=== PATIENT | female | born 1970 | race American Indian/Alaskan Native ===

== ENCOUNTER 2020-09-01 05:20 | Observation (INO) | payer OTHER ==
[2020-09-01] MEDS ORDERED: ASPIRIN 325 MG TAB PO ONE ×2 (06:08→09:05)
[2020-09-01 06:37] LABS: Basophils # (Auto) 0.1 K/mm3 (0.0-0.1); Eosinophils % (Auto) 0.3 % (0.0-4.3); Hematocrit 34.3 % (30.3-42.9); Hemoglobin 11.4 gm/dl (10.1-14.3); Lymphocytes # (Auto) 1.6 K/mm3 (1.2-5.4); Lymphocytes % (Auto) 18.1 % (13.4-35.0); Mean Corpuscular HGB Conc 33 % (30-34); Mean Corpuscular Volume 98 fl (79-97); Monocytes # (Auto) 0.5 K/mm3 (0.0-0.8); Monocytes % (Auto) 5.7 % (0.0-7.3); Platelet Count 216 K/mm3 (140-440); Red Blood Count 3.48 M/mm3 (3.65-5.03); Red Cell Distribution Width 16.8 % (13.2-15.2)
--- NOTE | 2020-09-01 06:40 | XRay Report ---
XR chest 1V ap INDICATION / CLINICAL INFORMATION: Chest Pain COMPARISON: None available. FINDINGS: SUPPORT DEVICES: Transvenous AICD HEART / MEDIASTINUM: No significant abnormality. LUNGS / PLEURA: Peribronchial and interlobular septal thickening. Right lower lung zone patchy airspa ce opacities. Costophrenic sulci are sharp. No pneumothorax. ADDITIONAL FINDINGS: No significant additional findings. IMPRESSION: 1. Right lower lung zone airspace disease concerning for pneumonia. 2. Interstitial edema is present. Signer Name: Damian Corona MD Signed: 09/01/2020 6:36 AM Workstation Name: [id number]
[2020-09-01 06:57] LABS: BUN/Creatinine Ratio 16; Blood Urea Nitrogen 11 mg/dL (7-17); Calcium 9.3 mg/dL (8.4-10.2); Hemolysis Index 40
[2020-09-01] MEDS ORDERED: fentaNYL 100 MCG/2 ML INJ IV ONE (09:05)
[2020-09-01] MEDS ORDERED: ONDANSETRON 4 MG/2 ML INJ IV ONE (09:05)
--- NOTE | 2020-09-01 09:14 | Emergency Department Report ---
HPI - General Chief Complaint: Dyspnea/Respdistress PUI?: Yes Time Seen by Provider: 09/01/20 08:41 - HPI HPI: Room 6 The patient is a 50-year-old female present with a chief complaint of shortness of breath and edema. The patient states for the past 2 days she has had bilateral pedal edema and intermittent shortness of breath. Patient states last night the shortness of breath worsened and she developed pain in her chest back and lower abdomen. Patient complained of feeling dizzy. Patient states for the past 2 days she has had a cough that is been nonproductive. Patient denies history of fever or known contact with Covid positive patients. Patient describes her chest pain as sharp and intermittent in nature. The patient states she has been compliant with her Lasix. The patient states her last stress test occurred approximately 8 months ago and was normal but she has never had a cardiac catheterization ED Past Medical Hx - Past Medical History Previous Medical History?: Yes Hx Hypertension: Yes Hx Congestive Heart Failure: Yes Hx Pulmonary Embolism: Yes Hx COPD: Yes - Surgical History Past Surgical History?: Yes Hx Internal Defibrillator: Yes Additional Surgical History: Hysterectomy - Family History Family history: no significant - Social History Smoking Status: Current Every Day Smoker (1/3 pack/day) Substance Use Type: None (Denies illicit drug use), Alcohol (Occasional) - Medications Home Medications: Home Medications Medication Instructions Recorded Confirmed Last Taken Type Aspirin [Adult Aspirin] 81 mg PO DAILY 09/01/20 09/01/20 Unknown History AtorvaSTATin [Lipitor] 10 mg PO QHS 09/01/20 09/01/20 Unknown History Furosemide [Lasix] 40 mg PO DAILY 09/01/20 09/01/20 Unknown History Metoprolol [Lopressor] 25 mg PO DAILY 09/01/20 09/01/20 Unknown History Potassium Chloride [K-Dur] 10 meq PO DAILY 09/01/20 09/01/20 Unknown History Verapamil HCl [Verapamil] 40 mg PO DAILY 09/01/20 09/01/20 Unknown History ED Review of Systems ROS: Stated complaint: SOB;BODY PAIN Other details as noted in HPI Constitutional: no symptoms reported Eyes: denies: eye pain ENT: denies: throat pain Respiratory: cough, shortness of breath Cardiovascular: chest pain Endocrine: no symptoms reported Gastrointestinal: abdominal pain Genitourinary: denies: dysuria Musculoskeletal: back pain Neurological: denies: headache Physical Exam - Physical Exam Vital Signs: Vital Signs 09/01/20 09/01/20 05:43 05:44 Temperature 98.6 F Pulse Rate 79 Respiratory 150 H 18 Rate Blood Pressure 99/57 O2 Sat by Pulse 100 Oximetry Physical Exam: GENERAL: The patient is well-developed well-nourished []. [] HEENT: Normocephalic. Atraumatic. Extraocular motions are intact. Patient has moist mucous membranes. NECK: Supple. Trachea midline CHEST/LUNGS: Clear to auscultation. There is no respiratory distress noted. HEART/CARDIOVASCULAR: Regular. There is no tachycardia. There is no gallop rub or murmur. ABDOMEN: Abdomen is soft, nontender. Patient has normal bowel sounds. There is no abdominal distention. SKIN: There is no rash. There is bilateral pedal edema left greater than right (trace pitting on right foot, 1+ pitting on the left foot). There is no diaphoresis. NEURO: The patient is awake, alert, and oriented. The patient is cooperative. The patient has normal speech MUSCULOSKELETAL: There is no evidence of acute injury. ED Course Vital Signs 09/01/20 09/01/20 05:43 05:44 Temperature 98.6 F Pulse Rate 79 Respiratory 150 H 18 Rate Blood Pressure 99/57 O2 Sat by Pulse 100 Oximetry - Consultations Consultation #1: 09/01/20 09:16 Cardiology paged 09/01/20 09:32 Case discussed with an EKG sent to Dr. Xiao. States intervention will Dr. Solis will evaluate the patient. Patient should be kept n.p.o. ED Medical Decision Making - Lab Data Result diagrams: 09/01/20 06:20 09/01/20 06:20 Laboratory Tests 09/01/20 09/01/20 09/01/20 06:20 06:20 09:17 WBC 9.1 RBC 3.48 L Hgb 11.4 Hct 34.3 MCV 98 H MCH 33 H MCHC 33 RDW 16.8 H Plt Count 216 Lymph % (Auto) 18.1 [place] % (Auto) 5.7 Eos % (Auto) 0.3 Baso % (Auto) 1.0 Lymph # (Auto) 1.6 [place] # (Auto) 0.5 Eos # (Auto) 0.0 Baso # (Auto) 0.1 Seg Neutrophils % 74.9 H Seg Neutrophils # 6.8 Sodium 139 Potassium 4.1 Chloride 98.7 Carbon Dioxide 30 Anion Gap 14 BUN 11 Creatinine 0.7 Estimated GFR > 60 BUN/Creatinine Ratio 16 Glucose 109 H Calcium 9.3 Troponin T < 0.010 < 0.010 - EKG Data -: EKG Interpreted by Me EKG shows normal: sinus rhythm Rate: normal - EKG Data When compared to previous EKG there are: previous EKG unavailable Interpretation: nonspecific ST-T wave violet - Radiology Data Radiology results: report reviewed (Chest x-ray), image reviewed (Chest x-ray) interpreted by me: Chest x-ray-right lower lobe haziness. No pneumothorax. XR chest 1V ap INDICATION / CLINICAL INFORMATION: Chest Pain COMPARISON: None available. FINDINGS: SUPPORT DEVICES: Transvenous AICD HEART / MEDIASTINUM: No significant abnormality. LUNGS / PLEURA: Peribronchial and interlobular septal thickening. Right lower lung zone patchy airspace opacities. Costophrenic sulci are sharp. No pneumothorax. ADDITIONAL FINDINGS: No significant additional findings. IMPRESSION: 1. Right lower lung zone airspace disease concerning for pneumonia. 2. Interstitial edema is present. Signer Name: Damian Corona MD Signed: 09/01/2020 5:36 AM Workstation Name: [id number] ] - Differential Diagnosis Pneumonia, CHF exacerbation, ACS, pericarditis, GERD, Covid Critical care attestation.: If time is entered above; I have spent that time in minutes in the direct care of this critically ill patient, excluding procedure time. ED Disposition Clinical Impression: Chest pain, CHF exacerbation, Pneumonia Disposition: OP ADMIT IP TO THIS HOSP Is pt being admited?: Yes Does the pt Need Aspirin: Yes Condition: Stable Instructions: Nonspecific Chest Pain, Adult, Bacterial Pneumonia (ED) Referrals: PRIMARY CARE, [Primary Care Provider] - 3-5 Days Time of Disposition: 11:14 (Hospitalist paged) Heart Score - HEART Score History: Moderately suspicious EKG: Significant ST-depression Age: 45-65 Risk factors: 1-2 risk factors Troponin: < normal limit HEART Score: 5
[2020-09-01] MEDS ORDERED: AZITHROMYCIN/NS 500 MG/250 ML 500 MG/250 ML BAG IV ONE (09:44)
[2020-09-01] MEDS ORDERED: cefTRIAXone/NS 1 GM/50 ML 1 GM/50 ML BAG IV ONE (09:44)
--- NOTE | 2020-09-01 11:59 | Consultation ---
History of Present Illness Consult date: 09/01/20 Requesting physician: YAMILETH MARTIN Consult reason: chest pain History of present illness: Patient is a 50-year-old with a history of nonischemic cardiomyopathy, status post AICD tobacco and alcohol abuse who presented to the hospital with complaints of shortness of breath edema and vague chest pain. Patient reports h e sees Dr. Christy on a regular basis. Lately she has been having worsening shortness of breath with mild exertion. Also noted to have gradually progressing edema. She reports that she has been compliant with the diet and medications. Past History Past Medical History: heart failure, other (Cardiomyopathy. Status post AICD) Past Surgical History: Other (Status post AICD) Social history: smoking, alcohol abuse Family history: no significant family history Medications and Allergies Allergies Allergy/AdvReac Type Severity Reaction Status Date / Time No Known Allergies Allergy Verified 09/01/20 08:44 Home Medications Medication Instructions Recorded Confirmed Last Taken Type Aspirin [Adult Aspirin] 81 mg PO DAILY 09/01/20 09/01/20 Unknown History AtorvaSTATin [Lipitor] 10 mg PO QHS 09/01/20 09/01/20 Unknown History Furosemide [Lasix] 40 mg PO DAILY 09/01/20 09/01/20 Unknown History Metoprolol [Lopressor] 25 mg PO DAILY 09/01/20 09/01/20 Unknown History Potassium Chloride [K-Dur] 10 meq PO DAILY 09/01/20 09/01/20 Unknown History Verapamil HCl [Verapamil] 40 mg PO DAILY 09/01/20 09/01/20 Unknown History Review of Systems All systems: negative (As mentioned in the H&P) Physical Examination Vital Signs Temp Pulse Resp BP Pulse Ox 98.6 F 79 18 99/57 100 09/01/20 05:43 09/01/20 05:43 09/01/20 05:43 09/01/20 05:43 09/01/20 05:43 General appearance: no acute distress HEENT: Positive: Normocephaly Neck: Positive: trachea midline Cardiac: Positive: Reg Rate and Rhythm Lungs: Positive: Other (Bilateral basal crepitus) Neuro: Positive: Grossly Intact Abdomen: Positive: Unremarkable Female genitourinary: deferred Extremities: Present: +1 Edema Results 09/01/20 06:20 09/01/20 06:20 CBC 09/01/20 Range/Units 06:20 WBC 9.1 (4.5-11.0) K/mm3 RBC 3.48 L (3.65-5.03) M/mm3 Hgb 11.4 (10.1-14.3) gm/dl Hct 34.3 (30.3-42.9) % Plt Count 216 (140-440) K/mm3 Lymph # (Auto) 1.6 (1.2-5.4) K/mm3 [place] # (Auto) 0.5 (0.0-0.8) K/mm3 Eos # (Auto) 0.0 (0.0-0.4) K/mm3 Baso # (Auto) 0.1 (0.0-0.1) K/mm3 Comprehensive Metabolic Panel 09/01/20 Range/Units 06:20 Sodium 139 (137-145) mmol/L Potassium 4.1 (3.6-5.0) mmol/L Chloride 98.7 (98-107) mmol/L Carbon Dioxide 30 (22-30) mmol/L BUN 11 (7-17) mg/dL Creatinine 0.7 (0.6-1.2) mg/dL Glucose 109 H (65-100) mg/dL Calcium 9.3 (8.4-10.2) mg/dL EKG interpretations - EKG Sinus rhythms and dysrhythmias: sinus rhythm (Anteroseptal Q waves LVH) Assessment and Plan Impression: 1. Atypical chest pain 2. Shortness of breath, exam and clinical history consistent with acute on chronic congestive heart failure 3. Acute on chronic systolic congestive heart failure with class III symptoms 4. History of nonischemic cardiomyopathy stage B class II-III symptoms 5. Abnormal EKG anteroseptal Q waves. Plan: Resume home medications Start patient on IV diuretics Monitor renal function If patient has not had echo if there is need an outpatient within the last 6 months we will repeat an echo Alcohol and smoking counseling May consider stress test prior to DC
[2020-09-01] MEDS ORDERED: FUROSEMIDE 20 MG/2 ML INJ IV ONE (12:00)
--- NOTE | 2020-09-01 12:37 | History and Physical Report ---
History of Present Illness Date of examination: 09/01/20 Date of admission: 09/01/20 11:19 Chief complaint: Worsening shortness of breath, worsening leg edema for the last 2 days History of present illness: 50-year-old -[place] female patient with significant past medical history of systolic congestive heart failure, nonischemic cardiomyopathy, s/pAICD follows with [facility], claims compliance with her medications and diet presents to the emergency room with worsening shortness of breath, nonproductive cough and worsening leg edema of 2 days duration with intermittent chest discomfort and chest pain. Patient also complains of some dizziness and generalized weakness. No history of fever no contacts with COVID- 19 patients, patient reports that she had a negative stress test about 8 to 10 months ago.Initial evaluation in the emergency room is consistent with, acute exacerbation of congestive heart failure Chest x-ray interstitial lung edema, right lower lobe airspace infiltrate, possible pneumonia Patient reports that her chest pain is intermittent lasts about 3 to 4 minutes not associated with nausea vomiting or diaphoresis mild intermittent dizziness At the time of my evaluation chest pain resolved mild shortness of breath Denies nausea vomiting abdominal pain 2 sets of cardiac enzymes negative Past History Past Medical History: heart failure, other (Cardiomyopathy. Status post AICD) Past Surgical History: Other (Status post AICD) Social history: smoking, alcohol abuse Family history: no significant family history Past History Past Medical History: heart failure, hypertension, hyperlipidemia, other (Cardiomyopathy. Status post AICD) Past Surgical History: Other (Status post AICD) Social history: smoking, alcohol abuse Family history: no significant family history Medications and Allergies Allergies Allergy/AdvReac Type Severity Reaction Status Date / Time No Known Allergies Allergy Verified 09/01/20 08:44 Home Medications Medication Instructions Recorded Confirmed Last Taken Type Aspirin [Adult Aspirin] 81 mg PO DAILY 09/01/20 09/01/20 Unknown History AtorvaSTATin [Lipitor] 10 mg PO QHS 09/01/20 09/01/20 Unknown History Furosemide [Lasix] 40 mg PO DAILY 09/01/20 09/01/20 Unknown History Metoprolol [Lopressor] 25 mg PO DAILY 09/01/20 09/01/20 Unknown History Potassium Chloride [K-Dur] 10 meq PO DAILY 09/01/20 09/01/20 Unknown History Verapamil HCl [Verapamil] 40 mg PO DAILY 09/01/20 09/01/20 Unknown History Active Meds: Active Medications Aspirin (Aspirin Ec 81 Mg Tab) 81 mg PO DAILY [facility] Atorvastatin Calcium (Atorvastatin 10 Mg Tab) 10 mg PO QHS [facility] Metoprolol Tartrate (Metoprolol Tartrate 25 Mg Tab) 25 mg PO DAILY [facility] Miscellaneous Medication (Verapamil Hcl [Verapamil]) 40 mg PO DAILY [facility] Review of Systems Constitutional: fatigue, weakness, no weight loss, no weight gain Ears, nose, mouth and throat: no nasal congestion, no nasal discharge Cardiovascular: chest pain, edema, lightheadedness, shortness of breath, dyspnea on exertion, leg edema, decreased exercise tolerance, no paroxysmal nocturnal dyspnea Respiratory: cough, shortness of breath, dyspnea on exertion Gastrointestinal: no abdominal pain, no nausea, no vomiting Genitourinary Female: no flank pain, no dysuria Musculoskeletal: no myalgias, no arthritis Integumentary: no rash, no lesions Neurological: no seizures, no syncope Psychiatric: no anxiety, no depression Endocrine: no cold intolerance, no heat intolerance Hematologic/Lymphatic: no easy bruising, no easy bleeding Allergic/Immunologic: no urticaria, no allergic rhinitis Exam - Constitutional Vitals: Temp Pulse Resp BP Pulse Ox 98.6 F 78 17 116/73 100 09/01/20 05:43 09/01/20 10:28 09/01/20 10:28 09/01/20 10:28 09/01/20 10:28 General appearance: Present: mild distress, well-nourished - EENT Eyes: Present: PERRL, EOM intact - Neck Neck: Present: supple, normal ROM - Respiratory Respiratory effort: normal Respiratory: bilateral: diminished, rales, negative: rhonchi, wheezing - Cardiovascular Rhythm: regular Heart Sounds: Present: S1 & S2 - Extremities Extremities: no ischemia Extremity abnormal: edema - Abdominal General gastrointestinal: Present: soft, non-tender, non-distended, normal bowel sounds - Integumentary Integumentary: Present: clear, warm - Musculoskeletal Musculoskeletal: strength equal bilaterally, generalized weakness - Psychiatric Psychiatric: appropriate mood/affect, cooperative - Neurologic Neurologic: CNII-XII intact, moves all extremities HEART Score - HEART Score EKG: Significant ST-depression Age: 45-65 Risk factors: 1-2 risk factors Troponin: Troponin T < 0.010 ng/mL (0.00-0.029) 09/01/20 09:17 Troponin: < normal limit Results - Labs CBC & Chem 7: 09/01/20 06:20 09/01/20 06:20 Labs: Abnormal lab results 09/01/20 09/01/20 Range/Units 06:20 06:20 RBC 3.48 L (3.65-5.03) M/mm3 MCV 98 H (79-97) fl MCH 33 H (28-32) pg RDW 16.8 H (13.2-15.2) % Seg Neutrophils % 74.9 H (40.0-70.0) % Glucose 109 H (65-100) mg/dL Assessment and Plan --Acute on chronic systolic congestive heart failure; Will managed with antifailure medications Resume IV diuretics, beta-blockers, MARTIN inhibitors, input output Low-sodium diet, water restriction Echocardiogram if not done in the last 6 months Cardiology evaluation noted --Atypical chest pain; probably secondary to CHF exacerbation Serial cardiac enzymes, aspirin and beta-blockers and statin Morphine if needed --Dyslipidemia; continue statin Low-cholesterol diet --DVT prophylaxis; Lovenox --Ongoing tobacco use; Smoking cessation counseling, nicotine patch as needed --History of alcohol use; Strongly advised to quit alcohol intake Closely monitor for any alcohol withdrawal symptoms [facility] protocol as needed Thiamine, folic acid We will closely monitor patient and adjust management as needed Neurology evaluation and recommendations noted and appreciated Plan of care reviewed with the patient and her nurse
[2020-09-01] MEDS ORDERED: VERAPAMIL HCL 40 MG PO SCH (12:45)
[2020-09-01] MEDS: ASPIRIN EC 81 MG TAB PO SCH (13:21)
[2020-09-01] MEDS: METOPROLOL TARTRATE 25 MG TAB PO SCH (13:33)
[2020-09-01] MEDS: MORPHINE 2 MG/1 ML INJ IV PRN ×2 (14:44→20:56)
[2020-09-01] MEDS: VERAPAMIL 80 MG TAB PO SCH (15:50)
[2020-09-01] MEDS ORDERED: oxyCODONE /ACETAMINOPHEN 5-325MG TAB PO PRN (18:05)
[2020-09-01] MEDS: oxyCODONE /ACETAMINOPHEN 5-325MG TAB PO PRN (23:43)
[2020-09-02] MEDS: MORPHINE 2 MG/1 ML INJ IV PRN ×4 (02:40→22:10)
[2020-09-02] MEDS ORDERED: guaiFENesin DM 200/20 MG ORAL LIQD 10 ML PO PRN (03:22)
[2020-09-02 05:42] LABS: Blood Urea Nitrogen 12 mg/dL (7-17); Calcium 8.6 mg/dL (8.4-10.2); Hemolysis Index 9
[2020-09-02 05:47] LABS: BUN/Creatinine Ratio 20
[2020-09-02] MEDS: oxyCODONE /ACETAMINOPHEN 5-325MG TAB PO PRN ×2 (07:04→20:46)
[2020-09-02] MEDS: ASPIRIN EC 81 MG TAB PO SCH (09:41)
[2020-09-02] MEDS: METOPROLOL TARTRATE 25 MG TAB PO SCH (09:42)
[2020-09-02] MEDS ORDERED: FUROSEMIDE 40 MG/4 ML INJ IV SCH (10:00)
--- NOTE | 2020-09-02 11:55 | Progress Note ---
Assessment and Plan - Patient Problems (1) Acute on chronic systolic heart failure Current Visit: Yes Status: Acute Plan to address problem: History of dilated nonischemic cardiomyopathy, with in situ ICD implant. Presents with symptoms and x-ray evidence of acute on chronic heart failure exacerbation. We will optimize heart failure therapy with diuretics, afterload therapy, spironolactone and add beta-blockers when heart failure is well compensated. I will discontinue the patient's verapamil and instead optimize beta-jason therapy with carvedilol. Subjective Date of service: 09/02/20 Interval history: The patient looks and feels better, but still has some mild shortness of breath on exertion. There is no chest pain and no edema. She has a known, nonischemic cardiomyopathy, status post ICD implant 1 month ago. She presents with shortness of breath and chest x-ray consistent with acute pulmonary edema. The etiology of the heart failure exacerbation is uncertain, patient states that she is compliant with medications and a strict low-salt diet. Objective Vital Signs Temp Pulse Resp BP BP Pulse Ox 09/02/20 09:00 65 09/02/20 08:23 32.1 F L 73 20 173/103 100 09/02/20 00:02 98.2 F 76 16 131/84 100 09/01/20 23:43 20 09/01/20 22:00 82 09/01/20 21:26 20 09/01/20 20:56 20 09/01/20 20:10 98.1 F 66 16 148/90 97 09/01/20 13:33 80 141/96 09/01/20 12:40 81 16 137/89 100 - Physical Examination General: No Apparent Distress HEENT: Positive: Normocephaly Neck: Positive: trachea midline Cardiac: Positive: Reg Rate and Rhythm Lungs: Positive: Decreased Breath Sounds Neuro: Positive: Grossly Intact Abdomen: Positive: Unremarkable Skin: Positive: Clear Extremities: Present: edema (Trace) - Labs and Meds Comprehensive Metabolic Panel 09/02/20 Range/Units 04:48 Sodium 138 (137-145) mmol/L Potassium 3.9 (3.6-5.0) mmol/L Chloride 101.7 (98-107) mmol/L Carbon Dioxide 29 (22-30) mmol/L BUN 12 (7-17) mg/dL Creatinine 0.6 (0.6-1.2) mg/dL Glucose 121 H (65-100) mg/dL Calcium 8.6 (8.4-10.2) mg/dL - EKG Sinus rhythms and dysrhythmias: sinus rhythm (Anteroseptal Q waves LVH)
--- NOTE | 2020-09-02 14:19 | Progress Note ---
Assessment and Plan Assessment and plan: --Acute on chronic systolic congestive heart failure; Continue Coreg, IV diuretics, lisinopril, cardiology added spironolactone Continue input output monitoring Low-sodium diet, water restriction Echocardiogram if not done in the last 6 months Cardiology evaluation noted and appreciated --Acute on chronic respiratory failure requiring oxygen Continue antifailure medications, continue oxygen titrate O2 sats to more than 90% Optimize heart failure medications, spironolactone added to the regimen by ca rdiology Patient already has home oxygen, check her oxygen needs at discharge And adjust as needed --Atypical chest pain; probably secondary to CHF exacerbation Serial cardiac enzymes, aspirin and beta-blockers and statin Morphine if needed --Dyslipidemia; continue statin Low-cholesterol diet --DVT prophylaxis; Lovenox --Ongoing tobacco use; Smoking cessation counseling, nicotine patch as needed --History of alcohol use; Strongly advised to quit alcohol intake Closely monitor for any alcohol withdrawal symptoms [place] protocol as needed Thiamine, folic acid We will closely monitor patient and adjust management as needed Cardiology recommendations noted and appreciated Plan of care reviewed with the patient and her nurse Patient still has symptoms of shortness of breath and may need more than 2 midnights inpatient stay for close observation and medication adjustments, History Interval history: I have seen and examined the patient at the bedside this morning Patient's chart and medications reviewed Patient feels slightly better still continues to have shortness of breath On nasal cannula oxygen, leg edema mild improvement Vital signs noted Hospitalist Physical - Constitutional Vitals: Temp Pulse Resp BP Pulse Ox 97.9 F 82 18 106/81 100 09/02/20 11:53 09/02/20 11:53 09/02/20 11:53 09/02/20 11:53 09/02/20 11:53 General appearance: Present: mild distress, well-nourished - EENT Eyes: Present: PERRL, EOM intact - Neck Neck: Present: supple, normal ROM - Respiratory Respiratory effort: normal Respiratory: bilateral: diminished, rhonchi, wheezing, negative: rales - Cardiovascular Rhythm: regular Heart Sounds: Present: S1 & S2 - Extremities Extremities: no ischemia Extremity abnormal: edema - Abdominal General gastrointestinal: soft, non-tender, non-distended, normal bowel sounds - Integumentary Integumentary: Present: clear, warm - Psychiatric Psychiatric: appropriate mood/affect, cooperative - Neurologic Neurologic: CNII-XII intact, moves all extremities HEART Score - HEART Score EKG: Significant ST-depression Age: 45-65 Risk factors: 1-2 risk factors Troponin: Troponin T < 0.010 ng/mL (0.00-0.029) 09/01/20 12:13 Troponin: < normal limit Results - Labs CBC & Chem 7: 09/01/20 06:20 09/02/20 04:48 Labs: Laboratory Last Values WBC 9.1 K/mm3 (4.5-11.0) 09/01/20 06:20 RBC 3.48 M/mm3 (3.65-5.03) L 09/01/20 06:20 Hgb 11.4 gm/dl (10.1-14.3) 09/01/20 06:20 Hct 34.3 % (30.3-42.9) 09/01/20 06:20 MCV 98 fl (79-97) H 09/01/20 06:20 MCH 33 pg (28-32) H 09/01/20 06:20 MCHC 33 % (30-34) 09/01/20 06:20 RDW 16.8 % (13.2-15.2) H 09/01/20 06:20 Plt Count 216 K/mm3 (140-440) 09/01/20 06:20 Lymph % (Auto) 18.1 % (13.4-35.0) 09/01/20 06:20 [place] % (Auto) 5.7 % (0.0-7.3) 09/01/20 06:20 Eos % (Auto) 0.3 % (0.0-4.3) 09/01/20 06:20 Baso % (Auto) 1.0 % (0.0-1.8) 09/01/20 06:20 Lymph # (Auto) 1.6 K/mm3 (1.2-5.4) 09/01/20 06:20 [place] # (Auto) 0.5 K/mm3 (0.0-0.8) 09/01/20 06:20 Eos # (Auto) 0.0 K/mm3 (0.0-0.4) 09/01/20 06:20 Baso # (Auto) 0.1 K/mm3 (0.0-0.1) 09/01/20 06:20 Seg Neutrophils % 74.9 % (40.0-70.0) H 09/01/20 06:20 Seg Neutrophils # 6.8 K/mm3 (1.8-7.7) 09/01/20 06:20 Sodium 138 mmol/L (137-145) 09/02/20 04:48 Potassium 3.9 mmol/L (3.6-5.0) 09/02/20 04:48 Chloride 101.7 mmol/L (98-107) 09/02/20 04:48 Carbon Dioxide 29 mmol/L (22-30) 09/02/20 04:48 Anion Gap 11 mmol/L 09/02/20 04:48 BUN 12 mg/dL (7-17) 09/02/20 04:48 Creatinine 0.6 mg/dL (0.6-1.2) 09/02/20 04:48 Estimated GFR > 60 ml/min 09/02/20 04:48 BUN/Creatinine Ratio 20 % 09/02/20 04:48 Glucose 121 mg/dL (65-100) H 09/02/20 04:48 Calcium 8.6 mg/dL (8.4-10.2) 09/02/20 04:48 Magnesium 1.70 mg/dL (1.7-2.3) 09/02/20 04:48 Troponin T < 0.010 ng/mL (0.00-0.029) 09/01/20 12:13 Alvarez/IV: Voiding Method Bedside Commode Active Medications - Current Medications Current Medications: Generic Name Dose Route Start Last Admin Trade Name Freq PRN Reason Stop Dose Admin Aspirin 81 mg 09/01/20 13:00 09/02/20 09:41 Aspirin Ec 81 Mg Tab PO 81 mg DAILY LOGAN Administration Atorvastatin Calcium 10 mg 09/01/20 22:00 09/01/20 21:42 Atorvastatin 10 Mg Tab PO 10 mg QHS LOGAN Administration Carvedilol 6.25 mg 09/02/20 12:00 Carvedilol 6.25 Mg Tab PO BID LOGAN Furosemide 40 mg 09/02/20 18:00 Furosemide 40 Mg/4 Ml Inj IV 0600,1800 LOGAN Guaifenesin 10 ml 09/02/20 03:22 09/02/20 04:27 Guaifenesin Dm 200/20 Mg Oral Liqd 10 Ml PO 10 ml Q4H PRN Administration Cough Lisinopril 5 mg 09/02/20 12:00 Lisinopril 5 Mg Tab PO QDAY LOGAN Morphine Sulfate 2 mg 09/01/20 14:35 09/02/20 09:41 Morphine 2 Mg/1 Ml Inj IV 2 mg Q6H PRN Administration Pain, Moderate (4-6) Oxycodone/Acetaminophen 1 tab 09/01/20 18:29 09/02/20 07:04 Oxycodone /Acetaminophen 5-325mg Tab PO 1 tab Q6H PRN Administration Pain, Moderate (4-6) Spironolactone 25 mg 09/02/20 12:00 Spironolactone 25 Mg Tab PO QDAY LOGAN
[2020-09-02] MEDS: carvediloL 6.25 MG TAB PO SCH ×2 (15:32→22:02)
[2020-09-02] MEDS: LISINOPRIL 5 MG TAB PO SCH (15:33)
[2020-09-02] MEDS: SPIRONOLACTONE 25 MG TAB PO SCH (15:33)
[2020-09-02] MEDS: VERAPAMIL 80 MG TAB PO SCH (16:57)
[2020-09-03] MEDS: MORPHINE 2 MG/1 ML INJ IV PRN ×2 (04:15→10:41)
[2020-09-03] MEDS: FUROSEMIDE 40 MG/4 ML INJ IV SCH ×2 (06:55→08:29)
[2020-09-03 07:58] VITALS: BP 130/84
--- NOTE | 2020-09-03 09:15 | Progress Note ---
Assessment and Plan Acute on chronic heart failure History of dilated nonischemic cardiomyopathy Presence of ICD Alcohol abuser Continue medical management for acute on chronic heart failure. Stable cardiac motta. 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 Subjective Date of service: 09/03/20 Interval history: No cardiac complaints. Objective Vital Signs Temp Pulse Resp BP BP Pulse Ox 09/03/20 07:56 98.1 F 85 16 130/84 97 09/03/20 03:55 68 18 115/83 100 09/02/20 23:53 98.0 F 75 18 124/76 100 09/02/20 22:02 106 H 143/96 09/02/20 22:00 86 09/02/20 20:33 98.3 F 106 H 18 143/96 84 09/02/20 16:26 98.5 F 81 20 138/93 97 09/02/20 11:53 97.9 F 82 18 106/81 100 - Physical Examination General: No Apparent Distress HEENT: Positive: Normocephaly Neck: Positive: trachea midline Cardiac: Positive: Reg Rate and Rhythm Lungs: Positive: Decreased Breath Sounds Neuro: Positive: Grossly Intact Abdomen: Positive: Soft Extremities: Absent: edema - EKG Sinus rhythms and dysrhythmias: sinus rhythm (Anteroseptal Q waves LVH)
[2020-09-03] MEDS: SPIRONOLACTONE 25 MG TAB PO SCH (10:41)
[2020-09-03] MEDS: LISINOPRIL 5 MG TAB PO SCH (10:41)
[2020-09-03] MEDS: carvediloL 6.25 MG TAB PO SCH (10:41)
[2020-09-03] MEDS: ASPIRIN EC 81 MG TAB PO SCH (10:41)
--- NOTE | 2020-09-03 13:24 | Discharge Summary ---
Providers - Providers Date of Admission: 09/01/20 11:19 Date of discharge: 09/03/20 Attending physician: CRUZ JETT 09/01/20 10:48 Consult to Physician [CONS] Urgent Comment: Consulting Provider: BLANCA BERG Physician Instructions: Reason For Exam: Chest pain 09/02/20 08:58 Physical Therapy Evaluation and Treat [CONS] Routine Comment: Reason For Exam: debillity Mode of Transport?: Wheelchair 09/02/20 08:59 Occupational Therapy Evaluate and Treat [CONS] Routine Comment: Reason For Exam: debility Primary care physician: TELEGRAPH SERVICE RATER Hospitalization Reason for admission: Acute on chronic systolic congestive heart failure/ac hypoxic resp failure Condition: Stable Hospital course: --Acute on chronic systolic congestive heart failure; Continue Coreg, IV diuretics, lisinopril, cardiology added spironolactone Continue input output monitoring Low-sodium diet, water restriction Echocardiogram if not done in the last 6 months Cardiology evaluation noted and appreciated --Acute on chronic respiratory failure requiring oxygen Continue antifailure medications, continue oxygen titrate O2 sats to more than 90% Optimize heart failure medications, spironolactone added to the regimen by cardiology Patient already has home oxygen, check her oxygen needs at discharge And adjust as needed --Atypical chest pain; probably secondary to CHF exacerbation Serial cardiac enzymes, aspirin and beta-blockers and statin Morphine if needed --Dyslipidemia; continue statin Low-cholesterol diet --DVT prophylaxis; Lovenox --Ongoing tobacco use; Smoking cessation counseling, nicotine patch as needed --History of alcohol use; Strongly advised to quit alcohol intake Closely monitor for any alcohol withdrawal symptoms [facility] protocol as needed Thiamine, folic acid Disposition: DC-01 TO HOME OR SELFCARE Time spent for discharge: 32 min Core Measure Documentation - Palliative Care Palliative Care/ Comfort Measures: Not Applicable - Core Measures Any of the following diagnoses?: none Exam - Constitutional Vitals: Temp Pulse Resp BP Pulse Ox 98.1 F 85 16 130/84 97 09/03/20 07:56 09/03/20 07:56 09/03/20 07:56 09/03/20 07:56 09/03/20 07:56 General appearance: Present: no acute distress, well-nourished - EENT Eyes: Present: PERRL, EOM intact - Neck Neck: Present: supple, normal ROM - Respiratory Respiratory effort: normal Respiratory: bilateral: diminished, negative: rales, rhonchi, wheezing - Cardiovascular Rhythm: regular Heart Sounds: Present: S1 & S2 - Extremities Extremities: no ischemia, No edema - Abdominal General gastrointestinal: Present: soft, non-tender, non-distended, normal bowel sounds - Integumentary Integumentary: Present: clear, warm - Musculoskeletal Musculoskeletal: strength equal bilaterally - Psychiatric Psychiatric: appropriate mood/affect, cooperative - Neurologic Neurologic: CNII-XII intact, moves all extremities Plan Activity: advance as tolerated Diet: low salt, other (Cardiac diet) Special Instructions: smoking cessation Additional Instructions: Advised to comply with medications diet follow-up visits. If you have worsening symptoms contact MD or go to emergency room. Advised to follow primary care physician and television host per schedule. Advised to quit alcohol intake. Smoking cessation counseling done Follow up with: PRIMARY CARE, [Primary Care Provider] - 3-5 Days BONNIE HAYES MD [Staff Physician] - 14 Days Prescriptions: Aspirin EC [Halfprin EC] 81 mg PO QDAY #30 tablet. Potassium Chloride [K-Dur] 10 meq PO QDAY #30 tablet Furosemide [Lasix TAB] 40 mg PO QDAY #30 tablet AtorvaSTATin [Lipitor] 40 mg PO QHS #30 tab lisinopriL [Lisinopril] 10 mg PO DAILY #30 tablet Metoprolol Xl [Metoprolol SUCCINATE ER TAB] 50 mg PO QDAY #30 tablet oxyCODONE /ACETAMINOPHEN [Percocet 5/325 mg] 1 tab PO BID PRN #10 tablet PRN Reason: Pain, Moderate (4-6) guaiFENesin [Robitussin] 100 mg PO Q6H PRN 14 Days #1 bottle PRN Reason: Cough Verapamil HCl [Verapamil] 40 mg PO DAILY #30 tablet
[2020-09-03] MEDS ORDERED: POTASSIUM CHLORIDE ER 20 MEQ TAB PO SCH (14:00)
[2020-09-03] MEDS ORDERED: METOPROLOL SUCCINATE XL 50 MG TAB PO SCH (14:00)
[2020-09-04] MEDS ORDERED: amLODIPine 5 MG TAB PO SCH (10:00)
[2020-09-04] MEDS ORDERED: VERAPAMIL 80 MG TAB PO SCH (10:00)
== END 2020-09-03 17:07 | disposition home or self-care (01) ==
LOC: ED 05:20 → 4A 11:19
PROVIDERS: ADMIT Internal Medicine; ATTEND Internal Medicine
DX: J96.20 Acute and chronic respiratory failure, unspecified whether with hypoxia or hypercapnia (principal); I11.0 Hypertensive heart disease with heart failure; I50.23 Acute on chronic systolic (congestive) heart failure; I42.9 Cardiomyopathy, unspecified; R07.89 Other chest pain; J44.9 Chronic obstructive pulmonary disease, unspecified; J18.9 Pneumonia, unspecified organism; E78.5 Hyperlipidemia, unspecified; F17.200 Nicotine dependence, unspecified, uncomplicated; R94.31 Abnormal electrocardiogram [ECG] [EKG]; Z98.890 Other specified postprocedural states; Z79.82 Long term (current) use of aspirin; Z86.711 Personal history of pulmonary embolism; Z90.710 Acquired absence of both cervix and uterus; Z79.899 Other long term (current) drug therapy
CPT/HCPCS: 36415; 71045; 80048; 83735; 84484; 85025; 93005; 96365; 96367; 96375; 96376; 97161; 97165; 97530; 99285; A9270; G0378; J0456; J0696; J1940; J2270; J2405; J3010